=== PATIENT | male | born 1985 | race Caucasian/White ===

== ENCOUNTER 2018-01-19 20:20 | Emergency (ER) | payer SELFPAY | END 2018-01-19 21:00 | disposition left against medical advice (07) | LOC: FTE 20:20 | DX: Z53.21 Procedure and treatment not carried out due to patient leaving prior to being seen by health care provider (principal) ==

== ENCOUNTER 2018-01-20 09:16 | Emergency (ER) | payer SELFPAY ==
[2018-01-20] MEDS: SOD CHLORIDE 0.9% 1,000 ML IV (10:04)
[2018-01-20] MEDS: ONDANSETRON 4 MG INJ IV (10:12)
[2018-01-20] MEDS: FAMOTIDINE 20 MG INJ IV (10:12)
[2018-01-20 10:15] LABS: ADD MAN DIFF? NO
[2018-01-20 10:22] LABS: WHITE BLOOD COUNT 7.8 10^3/ul (4.8-10.8)
[2018-01-20 10:22] LABS: BASOPHIL # 0.1 10^3/ul (0.0-0.1); BASOPHILS % 0.6 % (0.0-2.0); EOSINOPHILS % 0.5 % (0.0-7.0); HEMOGLOBIN 16.6 g/dl (14.0-18.0); LYMPHOCYTES # 2.2 10^3/ul (0.8-2.9); LYMPHOCYTES % 28.4 % (15.0-51.0); MEAN CORPUSCULAR HEMOGLOBIN 33.4 pg (29.0-33.0); MEAN CORPUSCULAR HGB CONC 35.3 g/dl (32.0-37.0); MEAN CORPUSCULAR VOLUME 94.6 fl (82.0-101.0); MEAN PLATELET VOLUME 9.5 fl (7.4-10.4); MONOCYTE # 0.5 10^3/ul (0.3-0.9); MONOCYTES % 6.8 % (0.0-11.0); NEUTROPHILS % 63.4 % (39.0-77.0); PLATELET COUNT 362 10^3/UL (140-415); RED BLOOD COUNT 4.97 10^6/ul (4.70-6.10); RED CELL DISTRIBUTION WIDTH 11.9 % (11.5-14.5)
[2018-01-20 11:00] LABS: ALANINE AMINOTRANSFERASE 256 IU/L (13-69); ALBUMIN/GLOBULIN RATIO 1.28; ALKALINE PHOSPHATASE 112 IU/L (42-121); AMYLASE 124 U/L (11-123); ANION GAP 24 (8-16); ASPARTATE AMINO TRANSFERASE 318 IU/L (15-46); BILIRUBIN,INDIRECT 0.4 mg/dl (0-1.1); BILIRUBIN,TOTAL 0.4 mg/dl (0.2-1.3); BLOOD UREA NITROGEN 7 mg/dl (7-20); CALCIUM 9.3 mg/dl (8.4-10.2); CARBON DIOXIDE 21 mmol/L (21-31); CHLORIDE 108 mmol/L (97-110); CREATININE 0.87 mg/dl (0.61-1.24); GLUCOSE 140 mg/dl (70-220); LIPASE 77 U/L (23-300); SODIUM 149 mmol/L (135-144); TOTAL PROTEIN 8.9 g/dl (6.1-8.1)
[2018-01-20] MEDS: PANTOPRAZOLE (EC) 40 MG TAB PO (12:13)
== END 2018-01-20 12:17 | disposition home or self-care (01) ==
LOC: E/R 09:16
DX: F10.129 Alcohol abuse with intoxication, unspecified (principal); J20.9 Acute bronchitis, unspecified; F17.210 Nicotine dependence, cigarettes, uncomplicated
CPT/HCPCS: 71045; 80053; 80306; 82150; 83690; 85025; 93005; 96374; 96375; 99285-25